=== PATIENT | male | born 1985 | race Two or more races ===

== ENCOUNTER 2022-04-25 15:38 | Emergency (ER) | payer MEDICAID ==
[~2022-04-25] VITALS: Ht 167.6 cm; Wt 89.8 kg
[2022-04-25 15:56] VITALS: BP 133/65
[2022-04-25] MEDS ORDERED: HYDROCODONE/APAP 5/325MG TABLET ONE (16:49)
[2022-04-25] MEDS ORDERED: NEOM10DR11 LEFT EAR (16:55)
[2022-04-25] MEDS ORDERED: IBUP-1955 PO (16:56)
[2022-04-25] MEDS ORDERED: HYDROCODONE/APAP 5/325MG TABLET PO ONE (17:00)
--- NOTE | 2022-04-25 17:07 | NUR ---
Patient discharged to home in stable condition. Written and verbal after care instructions given. Patient verbalizes understanding of instruction.
== END 2022-04-25 17:07 | disposition home or self-care (01) ==
LOC: ER 15:41
DX: H60.92 Unspecified otitis externa, left ear (principal); Z79.899 Other long term (current) drug therapy